=== PATIENT | female | born 1975 | race Two or more races ===

== ENCOUNTER → 2024-09-26 | Outpatient (CLI) | payer MEDICAID, SELFPAY ==
--- NOTE | 2024-09-26 10:30 | XR_ITS ---
Examination: CT abdomen, without intravenous contrast. CT abdomen, with intravenous contrast. Sagittal and coronal 2-D reconstructions. Time of exam:September 26, 2024 1101 hours INDICATIONS: Diagnosis liver hemangioma on outside ultrasound examination CTDI: vol (mGy) 18.8 DLP: (mGycm) 197 Technique: Multiple 3.0 mm axial noncontrast images of the abdomen have been obtained. Multiple 3.0 mm axial images post administration 60 cc [id number] intravenous contrast have been obtained. Sagittal and coronal 3-D reconstructions have been obtained. Low dose protocols were performed. One or more of the following dose reduction techniques were used; automated exposure control, adjustment of the mA and/or KV according to patient size, use of iterative reconstruction technique. Findings: 11 mm low-density right lobe liver lesion No gallstones Spleen is not enlarged No pancreatic or adrenal mass Lobulation versus 2 small masses medial margin right kidney, 13 mm, 12 mm, axial image 68 Subcentimeter left lateral periaortic lymph nodes No bowel obstruction IMPRESSION: 11 mm low-density right lobe liver lesion Lobulation versus 2 small masses medial margin right kidney Recommend CT scan abdomen pelvis intravenous contrast follow-up
[2024-09-26 10:43] LABS: HCG Qualitative,Urine Negative
== END | disposition home or self-care (01) ==
PROVIDERS: PCP Family Medicine; Referring Provider Family Medicine; Visit Provider Family Medicine
DX: K76.9 Liver disease, unspecified (principal); N28.89 Other specified disorders of kidney and ureter; Z32.00 Encounter for pregnancy test, result unknown
CPT/HCPCS: 74170; 81025; A4649; Q9967

== ENCOUNTER → 2025-04-29 | Outpatient (CLI) | payer MEDICAID, SELFPAY ==
--- NOTE | 2025-04-29 12:30 | XR_ITS ---
Examination: MRI brain without intravenous contrast. Date and time of exam: April 29, 2025, 1313 hours, comparison December 04, 2022 INDICATIONS: Intractable headaches, Arnold-Chiari malformation type I Brain MRI 2022 double vision with headaches Technique: Multiple axial and sagittal images of the brain obtained. Siemens high-resolution 1.5 Trina short bore scanners utilized. Sagittal sections, T1-weighted, TR 500, TE 14, are performed. Axial sections proton-density and T2-weighted have been obtained. Inversion recovery axial images, TR 9, 260, TE 111, TI 2500. Diffusion weighted images, axial sections, TR 4800, TE 128, B value 1000 Axial sections, ADC map, TR 4800, TE 128 Findings: Enlargement of the sella turcica is not present. The optic chiasm and infundibular are not remarkable. Prepontine and interpeduncular cisterns are not enlarged. There is no localized enlargement of the medulla or nora. Cerebellar tonsils project 3 mm below the foramen magnum No subacute area of hemorrhage density is seen. Mass in the cerebellopontine angle region is not evident. Globes symmetrical. Orbital musculature including medial lateral rectus muscles do not exhibit abnormality. Diffusion-weighted images demonstrate no focus of restricted diffusion. Increased white matter signal scattered punctate foci of increased signal in the white matter Mass effect upon the ventricular system is not identified. Impression: Negative for acute hemorrhage. Negative for acute infarct Scattered punctate foci of increased signal in the white matter consistent with demyelinating disease
== END | disposition home or self-care (01) ==
PROVIDERS: PCP Family Medicine; Referring Provider Psychiatry & Neurology Clinical Neurophysiology; Visit Provider Psychiatry & Neurology Clinical Neurophysiology
DX: G43.709 Chronic migraine without aura, not intractable, without status migrainosus (principal)
CPT/HCPCS: 70551

== ENCOUNTER → 2025-05-03 | Outpatient (CLI) | payer MEDICAID, SELFPAY ==
--- NOTE | 2025-05-03 09:30 | XR_ITS ---
Examination: MRI cervical spine without intravenous contrast Date and time of exam: May 03, 2025, 1236 hours INDICATIONS: Right neck pain radiating to the right shoulder beginning 3 years ago. Technique: Multiple axial and sagittal sections of the cervical spine to been obtained. T2 weighted sagittal sections, TR 3, 270, TE 117 T1-weighted sagittal sections, TR 500, TE 11 T1-weighted axial sections, TR 607, TE 12, axial sections TR 18, TE 27 and T2 weighted transverse sections, TR 3920, TE 122. Findings: Straightening normal cervical lordosis No cervical fracture Mild disc narrowing C4-C5, C5-C6 Diffuse cervical disc desiccation No block enlargement cervical cord C2-C3 no disc protrusion C3-C4 no disc protrusion C4-C5 3 mm central subarticular osteophyte disc complex C5-C6 2 mm central subarticular osteophyte disc complex, mild to moderate bilateral neuroforaminal stenosis C6-C7 mild left neural foraminal stenosis C7-T1 no disc protrusion IMPRESSION: C4-C5 3 mm central subarticular osteophyte disc complex C5-C6 2 mm central subarticular osteophyte disc complex, mild to moderate bilateral neural foraminal stenosis
== END | disposition home or self-care (01) ==
LOC: SMRI 09:26
PROVIDERS: Referring Provider Psychiatry & Neurology Clinical Neurophysiology; Visit Provider Psychiatry & Neurology Clinical Neurophysiology
DX: M25.78 Osteophyte, vertebrae (principal); M48.02 Spinal stenosis, cervical region
CPT/HCPCS: 72141